=== PATIENT | female | born 2000 | race Caucasian/White ===

== ENCOUNTER 2022-04-07 10:37 | Emergency (ER) | payer BC ==
[~2022-04-07] VITALS: Ht 172.7 cm; Wt 61.2 kg
[2022-04-07 10:48] VITALS: BP 119/79
--- NOTE | 2022-04-07 13:32 | NUR ---
PT AMBULATED TO BED 9
--- NOTE | 2022-04-07 13:32 | NUR ---
DR BALDERRAMA AT BEDSIDE FOR EVAL
--- NOTE | 2022-04-07 13:33 | NUR ---
21 Y/O FEMALE BIB SELF C/O UMBILICAL ABD PAIN RADIATING TO THE RLQ AND THE RIGHT FLANKXYESTERDAY. DENIES ANY VOMITING/DIARRHEA, NAUSEA NOTED. DENIES ANY BURNING URINATION OR OTHER URINARY S/S. DENIES ANY MEDICATION FOR NAUSEA NKA PMH: DENIES
[2022-04-07] MEDS ORDERED: CIPR500T4 PO (13:55)
[2022-04-07] MEDS ORDERED: IBUP-2213 PO (13:55)
[2022-04-07 14:07] VITALS: BP 108/65
--- NOTE | 2022-04-07 14:08 | NUR ---
Patient discharged with v/s stable. Written and verbal after care instructions given and explained. Patient alert, oriented and verbalized understanding of instructions. Ambulatory with steady gait. All questions addressed prior to discharge. ID band removed. Patient advised to follow up with PMD. Rx of CIPRO, MOTRIN given. Patient educated on indication of medication including possible reaction and side effects. Opportunity to ask questions provided and answered.
== END 2022-04-07 14:08 | disposition home or self-care (01) ==
LOC: MED 10:37
DX: N39.0 Urinary tract infection, site not specified (principal); R68.83 Chills (without fever); R11.0 Nausea; F12.90 Cannabis use, unspecified, uncomplicated
CPT/HCPCS: 81002; 81025; 99283